=== PATIENT | male | born 1950 | race Caucasian/White ===

== ENCOUNTER 2018-10-14 12:53 | Emergency (ER) | payer MEDICARE, MEDICAID ==
--- NOTE | 2018-10-14 13:35 | ED ---
Psychiatric Complaint - HPI Summary HPI Summary: This patient is a 68 year old M brought in by EMS from [place] with a chief complaint of psychological complaint since yesterday. Patient reports back pain and ecchymosis of the right arm. Patient denies CP, HI, SI, or abd pain. According to the staff at [facility], he was physically aggressive yesterday and verbally aggressive this morning. He refused to take his medications because he believes they are generic brand. The staff wants him evaluated for paranoia. The patient was cooperative with EMS and ED staff. On 10/07/18 he went to the hospital for choking on food. The Barcenas catheter was placed when he was admitted last time. - History Of Current Complaint Chief Complaint: EDPsychosocial Time Seen by Provider: 10/14/18 13:14 Hx Obtained From: Patient, EMS, Other: - staff Onset/Duration: Sudden Onset, Lasting Days Severity Currently: None Character: Angry, Frustrated Associated Signs And Symptoms: Positive: Hostile Has Suicidal: Denies: Thoughts Has Homicidal: Denies: Thoughts - Allergies/Home Medications Allergies/Adverse Reactions: Allergies Allergy/AdvReac Type Severity Reaction Status Date / Time ibuprofen AdvReac Constipatio Verified 10/07/18 17:42 n PMH/Surg Hx/FS Hx/Imm Hx Endocrine/Hematology History: Denies: Hx Diabetes Cardiovascular History: Reports: Hx Hypertension Denies: Hx Pacemaker/ICD Respiratory History: Reports: Hx Chronic Obstructive Pulmonary Disease (COPD) Denies: Hx Asthma History: Denies: Hx Renal Disease Sensory History: Reports: Hx Contacts or Glasses Denies: Hx Cataracts, Hx Hearing Aid Opthamlomology History: Reports: Hx Contacts or Glasses Denies: Hx Cataracts Psychiatric History: Reports: Other Psychiatric Issues/Disorders - personality disorder Denies: Hx Panic Disorder - Surgical History Surgery Procedure, Year, and Place: HAMMER TOES BILATERAL FEET. NECK SURGERY [place] Infectious Disease History: No Infectious Disease History: Denies: Traveled Outside the [place] in Last 30 Days - Family History Known Family History: Positive: Other - R&NC - Social History [facility]: [facility] Alcohol Use: None Hx Substance Use: No Substance Use Type: Reports: None Hx Tobacco Use: Yes Smoking Status (MU): Former Smoker Review of Systems Negative: Chest Pain Negative: Abdominal Pain Positive: Myalgia - back Positive: Bruising - right arm Psychological: Other - frustrated Negative: Other - SI/HI All Other Systems Reviewed And Are Negative: Yes Physical Exam - Summary Physical Exam Summary: GENERAL: Patient is a well-developed and nourished male who is lying comfortable in the stretcher. Patient is not in any acute respiratory distress. HEAD AND FACE: Normocephalic EYES: PERRLA, EOMI x 2. EARS: Hearing grossly intact. MOUTH: Oropharynx within normal limits. NECK: Supple, trachea is midline, no adenopathy, no JVD, no carotid bruit. CHEST: Symmetric, no tenderness at palpation LUNGS: Clear to auscultation bilaterally. No wheezing or crackles. CVS: Regular rate and rhythm, S1 and S2 present, no murmurs or gallops appreciated. ABDOMEN: Soft, non-tender. Bowel sounds are normal. No abdominal abnormal pulsations. EXTREMITIES: Full ROM in all major joints, no edema, no cyanosis or clubbing. NEURO: Alert and oriented x 3. No acute neurological deficits. Speech is normal and follows commands. SKIN: Dry and warm Psych: normal affect, no SI, no HI, no visual or auditory hallucinations Triage Information Reviewed: Yes Vital Signs On Initial Exam: Initial Vitals Temp Pulse Resp BP Pulse Ox 98.4 F 76 16 180/95 97 10/14/18 13:03 10/14/18 13:03 10/14/18 13:03 10/14/18 13:03 10/14/18 13:03 Vital Signs Reviewed: Yes Diagnostics - Vital Signs Vital Signs Temp Pulse Resp BP Pulse Ox 10/14/18 13:03 98.4 F 76 16 180/95 97 - Laboratory Result Diagrams: 10/14/18 14:12 10/14/18 14:12 Lab Statement: Any lab studies that have been ordered have been reviewed, and results considered in the medical decision making process. Re-Evaluation - Re-Evaluation First Eval Re-Evaluation Time: 15:20 Course/Dx - Course Course Of Treatment: This patient is a 68 year old M brought in by EMS from [place] with a chief complaint of psychological complaint since yesterday. Patient denies CP, HI, SI, or abd pain. Bloodwork/UA obtained and is remarkable for Na+ of 131 and is improved compared to previous and UA concerning for UTI. In the ED course the patient was given Cephalexin. The patient was completely cooperative and showed no signs of paranoia. Patient reports that he got upset because they are giving his generic brand medicines and he normally takes the brand name. He is not hallucinating and denies SI or HI. Therefore, I did not see the need for emergent psychiatric evaluation and believe the patient is safe to go back to senior care. Patient can follow up on an outpatient basis. Patient will be discharged with prescription for Cephalexin and follow up from Dr. Guaman. - Differential Dx/Clinical Impression Provider Diagnosis: UTI (urinary tract infection) Discharge - Sign-Out/Discharge Documenting (check all that apply): Patient Departure - discharge Patient Received Moderate/Deep Sedation with Procedure: No - Discharge Plan Condition: Stable Disposition: HOME Prescriptions: Cephalexin CAP* [Keflex CAP*] 500 mg PO BID #14 cap Patient Education Materials: Urinary Tract Infection in Men (ED) Referrals: Julienne Guaman PA [Primary Care Provider] - 3 Days Additional Instructions: Please take Keflex 500 BID for 7 days. Follow up with Dr. Guaman in 1-3 days. RETURN TO THE EMERGENCY DEPARTMENT FOR CHANGING OR WORSENING SYMPTOMS. - Billing Disposition and Condition Condition: STABLE Disposition: Home - Attestation Statements Document Initiated by Scribe: Yes Documenting Scribe: Kyaw Constantino Provider For Whom Alessandra is Documenting (Include Credential): Mireille Rivera MD Scribe Attestation: Kyaw Gordon, scribed for Mireille Rivera MD on 10/14/18 at 1554. Scribe Documentation Reviewed: Yes Provider Attestation: The documentation as recorded by the Kyaw mueller accurately reflects the service I personally performed and the decisions made by me, Mireille Rivera MD Status of Scribe Document: Viewed
[2018-10-14 13:38] LABS: Urine Appearance Cloudy; Urine Bacteria Absent (Absent); Urine Bilirubin Negative (Negative); Urine Blood 3+ (Negative); Urine Color Yellow; Urine Glucose Negative (Negative); Urine Ketones Negative (Negative); Urine Nitrite Negative (Negative); Urine Protein 2+(100 mg/dL) (Negative); Urine Red Blood Cell 3+(>10/hpf) (Absent); Urine Specific Gravity 1.006 (1.010-1.030); Urine Urobilinogen Negative (Negative); Urine White Blood Cell 3+(>20/hpf) (Absent)
[2018-10-14 14:21] LABS: ABS Basophils 0 10^3/ul (0-0.2); ABS Eosinophils 0.1 10^3/ul (0-0.6); ABS Lymphocytes 0.9 10^3/ul (1.0-4.8); ABS Monocytes 0.5 10^3/ul (0-0.8); ABS Neutrophils 4.4 10^3/ul (1.5-7.7); ABS Nucleated RBC 0 10^3/ul; Eosinophil % 1.7 %; Hematocrit 40 % (36-46); Hemoglobin 13.8 g/dL (14.0-18.0); Lymphocyte % 15.6 %; Mean Corpuscular HGB Conc 35 g/dL (31-36); Mean Corpuscular Hemoglobin 32 pg (27-31); Mean Corpuscular Volume 93 fL (80-94); Mean Platelet Volume 6.3 fL (7.4-10.4); Nucleated Red Blood Cells % 0.1; Platelet Count 313 10^3/uL (150-450); Red Blood Count 4.28 10^6 /uL (4.18-5.48); Red Cell Distribution Width 14 % (10.5-15); White Blood Count 5.9 10^3/uL (3.5-10.8)
[2018-10-14 14:34] LABS: Albumin 4.4 g/dL (3.2-5.2); Albumin/Globulin Ratio 1.8 (1-3); BUN/Creatinine Ratio 16.7 (8-20); Calcium 9.4 mg/dL (8.6-10.3); EGFR African American 119.4 (>60); EGFR Non-African American 98.7 (>60); Globulin 2.5 g/dL (2-4); Potassium 4.1 mmol/L (3.5-5.0); Total Bilirubin 0.3 mg/dL (0.2-1.0); Total Protein 6.9 g/dL (6.4-8.9)
[2018-10-14] MEDS ORDERED: Cephalexin CAP* 500 MG PO ONE (15:05)
[2018-10-14 16:38] VITALS: BP 162/88
== END 2018-10-14 16:37 | disposition home or self-care (01) ==
LOC: ED 12:53
DX: N39.0 Urinary tract infection, site not specified (principal); I10 Essential (primary) hypertension; F60.9 Personality disorder, unspecified; Z88.6 Allergy status to analgesic agent
CPT/HCPCS: 36415; 80053; 81003; 81015; 85025; 87086; 99282; A9270-GY

== ENCOUNTER 2018-10-26 17:40 | Emergency (ER) | payer MEDICARE, MEDICAID ==
--- NOTE | 2018-10-26 19:23 | ED ---
GI/ HPI - HPI Summary HPI Summary: 68-year-old male presents with constipation today. He states that he has a bowel movement while in the waiting room. since he had a very large bowel movement states that his bowel pain is resolved. He states he wants his medication changed to help with the constipation. They're currently giving him MiraLAX and senna. He states he also has history of bph and issues with hhis prostate. He does not appear to be on any medication for his prostate. He states he had a Barcenas couple weeks ago but they removed it. He does not want Barcenas. He denies any urinary retention. - History of Current Complaint Chief Complaint: EDGeneral Time Seen by Provider: 10/26/18 18:42 Stated Complaint: PROBLEMS WITH PROSTATE AND KIDNEYS PER PT Pain Intensity: 1 - Additional Pertinent History Primary Care Physician: ALLYSSA - Allergy/Home Medications Allergies/Adverse Reactions: Allergies Allergy/AdvReac Type Severity Reaction Status Date / Time budesonide [From Symbicort] Allergy Unknown Verified 10/26/18 18:52 Reaction Details diclofenac Allergy Unknown Verified 10/26/18 18:52 Reaction Details formoterol [From Symbicort] Allergy Unknown Verified 10/26/18 18:52 Reaction Details misoprostol [From Arthrotec] Allergy Unknown Verified 10/26/18 18:52 Reaction Details tiotropium Allergy Unknown Verified 10/26/18 18:52 [From Spiriva with Reaction HandiHaler] Details ibuprofen AdvReac Constipatio Verified 10/07/18 17:42 n triacetin Allergy Unknown Uncoded 10/26/18 18:52 Reaction Details Home Medications: Home Medications Beta-Carotene(A)-Vits C,E/Mins [Vision Vitamins] 1 each PO DAILY 10/26/18 [ History Confirmed 10/26/18] Fluticasone DISKUS 250 MCG(NF) [Flovent Diskus 250 MCG(NF)] 1 puff INH BID 10/26 [History Confirmed 10/26/18] Hydrochlorothiazide TAB* [Hydrodiuril TAB*] 25 mg PO DAILY 10/26/18 [History Confirmed 10/26/18] Primidone TAB(*) [Mysoline TAB(*)] 250 mg PO BID 10/26/18 [History Confirmed ] Salmeterol DISKUS (NF) [Serevent Diskus (NF)] 1 inh INH Q12H 10/26/18 [History Confirmed 10/26/18] PMH/Surg Hx/FS Hx/Imm Hx Endocrine/Hematology History: Denies: Hx Diabetes Cardiovascular History: Reports: Hx Hypertension Denies: Hx Pacemaker/ICD Respiratory History: Reports: Hx Chronic Obstructive Pulmonary Disease (COPD) Denies: Hx Asthma History: Denies: Hx Renal Disease Sensory History: Reports: Hx Contacts or Glasses Denies: Hx Cataracts, Hx Hearing Aid Opthamlomology History: Reports: Hx Contacts or Glasses Denies: Hx Cataracts Psychiatric History: Reports: Other Psychiatric Issues/Disorders - personality disorder Denies: Hx Panic Disorder - Surgical History Surgery Procedure, Year, and Place: HAMMER TOES BILATERAL FEET. NECK SURGERY [place] Infectious Disease History: No Infectious Disease History: Denies: Traveled Outside the [place] in Last 30 Days - Family History Known Family History: Positive: Other - R&NC - Social History Alcohol Use: None Hx Substance Use: No Substance Use Type: Reports: None Hx Tobacco Use: Yes Smoking Status (MU): Former Smoker Review of Systems Negative: Fever Negative: Chest Pain Negative: Shortness Of Breath Positive: Abdominal Pain - resolved. Negative: Vomiting, Nausea All Other Systems Reviewed And Are Negative: Yes Physical Exam Triage Information Reviewed: Yes Vital Signs On Initial Exam: Initial Vitals Temp Pulse Resp BP Pulse Ox 97.8 F 75 20 159/106 97 10/26/18 17:51 10/26/18 17:51 10/26/18 17:51 10/26/18 17:51 10/26/18 17:51 Vital Signs Reviewed: Yes Appearance: Positive: Well-Appearing Skin: Positive: Warm, Dry Head/Face: Positive: Normal Head/Face Inspection Eyes: Positive: Normal, Conjunctiva Clear ENT: Positive: Pharynx normal Respiratory/Lung Sounds: Positive: Clear to Auscultation, Breath Sounds Present Cardiovascular: Positive: Normal, RRR Abdomen Description: Positive: Nontender, Soft Bowel Sounds: Positive: Present Musculoskeletal: Positive: Normal Neurological: Positive: Normal Psychiatric: Positive: Normal Diagnostics - Vital Signs Vital Signs Temp Pulse Resp BP Pulse Ox 10/26/18 17:51 97.8 F 75 20 159/106 97 - Laboratory Lab Statement: Any lab studies that have been ordered have been reviewed, and results considered in the medical decision making process. - Radiology abd Radiology Interpretation Completed By: ED Physician Summary of Radiographic Findings: moderate stool Re-Evaluation - Re-Evaluation First Eval Re-Evaluation Time: 19:56 Comment: discussed will add on enema for treatment regime GIGU Course/Dx - Course Course Of Treatment: 68-year-old male presents with constipation today. He states that he has a bowel movement while in the waiting room. since he had a very large bowel movement states that his bowel pain is resolved. He states he wants his medication changed to help with the constipation. They're currently giving him MiraLAX and senna. He states he also has history of bph and issues with hhis prostate. He does not appear to be on any medication for his prostate. He states he had a Barcenas couple weeks ago but they removed it. He does not want Barcenas. He denies any urinary retention. On exam nontender abdomen. X-ray shows some stool. We will add on enemas as needed. urine no infection. patient understand and agrees with plan. - Diagnoses Differential Diagnoses - Male: Bowel Obstruction, Urinary Tract Infection, Other - constipation Provider Diagnoses: Constipation Discharge - Sign-Out/Discharge Documenting (check all that apply): Patient Departure Patient Received Moderate/Deep Sedation with Procedure: No - Discharge Plan Condition: Good Disposition: HOME Patient Education Materials: Constipation (ED) Referrals: Julienne Guaman PA [Primary Care Provider] - Additional Instructions: take miralax 17gm every morning use 1-2tablet senna every night add on fleet enema as needed for constipation Follow up with primary within 5 days Return to ED if develop any new or worsening symptoms - Billing Disposition and Condition Condition: GOOD Disposition: Home
[2018-10-26 20:12] LABS: Urine Appearance Clear; Urine Bacteria Absent (Absent); Urine Bilirubin Negative (Negative); Urine Blood 1+ (Negative); Urine Color Straw; Urine Glucose Negative (Negative); Urine Ketones Negative (Negative); Urine Nitrite Negative (Negative); Urine Protein Negative (Negative); Urine Red Blood Cell Absent (Absent); Urine Specific Gravity 1.004 (1.010-1.030); Urine Urobilinogen Negative (Negative); Urine White Blood Cell Absent (Absent)
[2018-10-26 20:34] VITALS: BP 157/101
== END 2018-10-26 20:33 | disposition home or self-care (01) ==
LOC: ED 17:40
DX: K59.00 Constipation, unspecified (principal); I10 Essential (primary) hypertension; J44.9 Chronic obstructive pulmonary disease, unspecified; Z88.8 Allergy status to other drugs, medicaments and biological substances; Z88.6 Allergy status to analgesic agent; Z79.899 Other long term (current) drug therapy; Z87.891 Personal history of nicotine dependence
CPT/HCPCS: 74018; 81003; 81015; 99282